=== PATIENT | female | born 1950 | race Caucasian/White ===

== ENCOUNTER → 2018-06-27 | Outpatient (CLI) | payer OTHER | LOC: M.RAD 11:38 | DX: M47.22 Other spondylosis with radiculopathy, cervical region (principal); M25.512 Pain in left shoulder; M43.12 Spondylolisthesis, cervical region; W19.XXXA Unspecified fall, initial encounter ==

== ENCOUNTER → 2018-12-03 | Outpatient (CLI) | payer OTHER | LOC: M.RAD 11:31 | DX: Z01.810 Encounter for preprocedural cardiovascular examination (principal); F17.210 Nicotine dependence, cigarettes, uncomplicated ==

== ENCOUNTER → 2019-02-13 | Outpatient (CLI) | payer OTHER | LOC: M.RAD 13:20 | DX: M25.552 Pain in left hip (principal); Z88.0 Allergy status to penicillin; Z88.8 Allergy status to other drugs, medicaments and biological substances ==

== ENCOUNTER → 2019-02-21 | Outpatient (CLI) | payer OTHER | LOC: M.RAD 02-20 09:00 | DX: M81.0 Age-related osteoporosis without current pathological fracture (principal); M85.88 Other specified disorders of bone density and structure, other site ==

== ENCOUNTER → 2019-03-27 | Outpatient (CLI) | payer OTHER | LOC: M.RAD 14:01 | DX: S22.42XA Multiple fractures of ribs, left side, initial encounter for closed fracture (principal); R07.89 Other chest pain; X58.XXXA Exposure to other specified factors, initial encounter; Y93.89 Activity, other specified; Y92.89 Other specified places as the place of occurrence of the external cause; Y99.8 Other external cause status ==

== ENCOUNTER → 2019-04-02 | Outpatient (CLI) | payer OTHER | LOC: M.ULTRA 14:12 | DX: I82.411 Acute embolism and thrombosis of right femoral vein (principal); Z88.8 Allergy status to other drugs, medicaments and biological substances; Z88.0 Allergy status to penicillin ==

== ENCOUNTER → 2019-11-19 | Outpatient (CLI) | payer OTHER ==
[2019-11-19 07:40] LABS: HEMATOCRIT 40.6 % (37.0-47.0); HEMOGLOBIN 14.2 gm/dL (12.0-15.0); MCH 32.7 pg (26.0-34.0); MCV 93.5 fL (80.0-100.0); RBC 4.34 mil/uL (4.20-5.00); RDW-CV 13.7 % (10.5-14.5); WBC 6.4 thou/uL (4.0-11.0)
[2019-11-19 08:05] LABS: CALCIUM 9.5 mg/dL (8.5-10.1); CREATININE 0.9 mg/dL (0.6-1.3)
== END ==
LOC: M.LAB 06:54
PROVIDERS: ATTEND Podiatrist
DX: M79.672 Pain in left foot (principal)

== ENCOUNTER → 2020-12-09 | Outpatient (CLI) | payer OTHER ==
--- NOTE | 2020-12-10 08:24 | CARDNUC ---
[place] [address] CARDIAC NUCLEAR IMAGING REPORT Name: ASH FLEMING Room: [facility]#: [id number] Admission: 12/09/20 Attend Phys: Power Prince, Discharge: Date of : 48 Date of Service: 12/10/20 0824 Report #: [id number] THIS REPORT FOR: cc: Viktor Herbert MD, Dean L. MD Liston, Michael J. MD [facility] ~ APPROVED REPORT Imaging Protocol: Rest Tc-99m/Stress Tc-99m 1 day Study performed: 12/09/2020 07:30:00 Indication: Chest pain, Dyspnea, Abnormal EKG Patient Location: Out-Patient Stress Tech: Tiffanie Rose Stress Nurse: Yesika Garland RN NM Tech:MASON Amezcua Ht: 5 ft 3 in Wt: 128 lbs BSA: 1.60 m2 BMI: 22.67 Medical History Medical History: Arrhythmia, Former Smoker, HTN, Hyperlipidemia, PVD Medications: fish oil maxide Allergies: cipro, ees, keflex, pcn, symbicort Cardiac Risk Factors: Age, HTN, Hyperlipidemia, Tobacco History (Former) Exercise History: Indeterminate Resting Data Rest SPECT myocardial perfusion imaging was performed in supine position 30 minutes following the intravenous injection of 10.6 mCi of Tc-99m Sestamibi. Time of rest injection: 0800 Date: 12/09/2020 The images were gated to evaluate regional wall motion and calculate left ventricular ejection fraction. Administration Route: IV Exercise Stress At peak stress, the patient was injected intravenously with 31.3mCi of Tc-99m Sestamibi. Time of stress injection: 1010 Date: 12/09/2020 Administration Route: IV Gated Stress SPECT was performed 30 [place] [address] CARDIAC NUCLEAR IMAGING REPORT Name: ASH FLEMING Room: [facility]#: [id number] Admission: 12/09/20 Attend Phys: Power Prince, Discharge: Date of : 48 Date of Service: 12/10/20823 Report #: [id number] injection. The images were gated to evaluate regional wall motion and calculate left ventricular ejection fraction. Prone imaging was performed. Stress Test Details Stress Test: Exercise stress testing was performed using a Alejandro protocol. HR Max Heart Rate (APMHR): 149 bpm Resting HR: 67 bpm Target HR (85% APMHR): 126 bpm Max HR Achieved: 133 bpm % of APMHR: 89 Recovery HR: 91 bpm BP Resting BP: 114/70 mmHg Max BP: 153/98 mmHg Recovery BP: 117/73 mmHg ECG Resting ECG: Sinus Rhythm Stress ECG: Sinus Tachycardia ST Change: None Arrhythmia: None Recovery ECG: Sinus Rhythm Recovery ST Change: None Recovery Arrhythmia: None Clinical Reason for Termination: Maximal effort, Fatigue Exercise duration: 7 min 59 sec Exercise capacity: 8.78 METs Overall Exercise Capacity for Age: Superior Functional Aerobic Impairment 89% The patient tolerated stable historical exercise without significant cardiac symptoms. Stress ECG Conclusion The baseline twelve-lead EKG shows sinus rhythm without significant ST segment abnormality. EKGs obtained during and post exercise show sinus rhythm and sinus tachycardia with no significant ST segment or T wave changes when compared to baseline. There were no stress-induced arrhythmias. Study Quality Study: [place] [address] CARDIAC NUCLEAR IMAGING REPORT Name: ASH FLEMING Room: [facility]#: [id number] Admission: 12/09/20 Attend Phys: Power Prince, Discharge: Date of : 48 Date of Service: 12/10/20 0824 Report #: [id number] Artifact: Mild Breast artifact Study Data At rest, the left ventricular ejection fraction was 63%.. Post stress, the left ventricular ejection was 59%.. TID = 0.96. Perfusion Perfusion images obtained in the supine position at rest and post exercise stress show mild photopenia in the anterior wall that resolves completely with post-rest prone imaging consistent with breast attenuation artifact. No other significant fixed or reversible defects were identified. Wall Motion Normal left ventricular wall motion. Nuclear Conclusion ECG Findings: negative for ischemia Clinical Findings: negative for ischemia Nuclear Findings: negative for ischemia Exercise Capacity: normal Left Ventricular Function: normal Risk Study: low Perfusion images show no defect to suggest infarct or ischemia. Left ventricular systolic function appears normal on gated studies. This is a low risk study. <Conclusion> The baseline twelve-lead EKG shows sinus rhythm without significant ST segment abnormality. EKGs obtained during and post exercise show sinus rhythm and sinus tachycardia with no significant ST segment or T wave changes when compared to baseline. There were no stress-induced arrhythmias. <ELECTRONICALLY SIGNED> By: Warren Bello MD, FACC 12/10/20823 3 3 Warren Bello MD, FACC /INF
== END ==
LOC: M.NUC 11-18 16:30 → M.CRD 12-07 09:00 → M.NUC 12-07 10:00
PROVIDERS: ATTEND Internal Medicine
DX: I08.8 Other rheumatic multiple valve diseases (principal); R00.0 Tachycardia, unspecified; R94.31 Abnormal electrocardiogram [ECG] [EKG]; R07.89 Other chest pain; R06.00 Dyspnea, unspecified; R68.89 Other general symptoms and signs